=== PATIENT | female | born 2000 | race Caucasian/White ===

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

== ENCOUNTER 2018-01-20 11:26 | Outpatient (CLI) | END 2018-01-20 11:27 | disposition home or self-care (01) | LOC: RHC-LAB 11:26 | PROVIDERS: ATTEND Nurse Practitioner Family | DX: N13.5 Crossing vessel and stricture of ureter without hydronephrosis (principal); Z01.818 Encounter for other preprocedural examination | CPT/HCPCS: 81001; 87086 ==

== ENCOUNTER 2018-03-30 19:31 | Outpatient (CLI) | END 2018-03-30 19:47 | disposition short-term general hospital (02) | LOC: AMBL 19:31 | PROVIDERS: ATTEND Emergency Medicine | DX: Z04.1 Encounter for examination and observation following transport accident (principal) ==